=== PATIENT | female | born 1955 | race Caucasian/White ===

== ENCOUNTER 2020-07-18 10:59 | Outpatient (CLI) | payer BC, MEDICARE, SELFPAY ==
--- NOTE | ~2020-07-18 | US_ITS ---
. EXAMINATION: US soft tissue head and neck DATE: 07/18/2020 11:29 INDICATION: Right neck pain. TECHNIQUE: Multiple grayscale and Doppler ultrasound images of the right neck were obtained. COMPARISON: None FINDINGS: There is no abnormal mass or lymphadenopathy in the patient's area of concern in right neck . IMPRESSION: 1. No abnormal mass or lymphadenopathy in the patient's area of concern in right neck. Reviewed, dictated and finalized at location A. IMPRESSION: 1. No abnormal mass or lymphadenopathy in the patient's area of concern in righ t neck.
== END 2020-07-18 11:00 | disposition home or self-care (01) ==
PROVIDERS: PCP Internal Medicine; Visit Provider Internal Medicine
DX: M54.2 Cervicalgia (principal)
CPT/HCPCS: 76536

== ENCOUNTER 2021-03-11 07:10 | Outpatient (CLI) | payer BC, MEDICARE, SELFPAY ==
--- NOTE | ~2021-03-11 | MM_ITS ---
EXAMINATION: MM screening av BI w cesar HISTORY: Screening mammogram TECHNIQUE: Craniocaudal and mediolateral oblique 3-D tomosynthesis images were obtained and synthetic 2-D images were generated. CAD analysis was submitted and interpreted. COMPARISON: 11/07/2019, 10/16/2018, 07/01/2017 bilateral digital screening mammogram examinations BREAST PARENCHYMAL COMPOSITION: There are scattered areas of fibroglandular density. FINDINGS: Stable mild fibroglandular asymmetry. Occasional bilateral benign calcifications. There is no evidence of suspicious mass, calcification, or architectural distortion to suggest malignancy in e ither breast. There has been no suspicious interval change. IMPRESSION: 1. No mammographic evidence of malignancy. 2. Recommend routine screening mammography in one year. BI-RADS Category 2: Benign finding(s). Reviewed, dictated and finalized at location A.
== END 2021-03-11 07:11 | disposition home or self-care (01) ==
LOC: ANHIMG 07:14
PROVIDERS: PCP Internal Medicine; Visit Provider Nurse Practitioner
DX: Z12.31 Encounter for screening mammogram for malignant neoplasm of breast (principal)
CPT/HCPCS: 77063; 77067